=== PATIENT | male | born 1985 | race Caucasian/White ===

== ENCOUNTER 2018-08-27 12:52 | Emergency (ER) | payer OTHER ==
[2018-08-27] MEDS ORDERED: ACETAMINOPHEN EXTRA STRENGTH 500 MG TABLET ONE (13:14)
== END 2018-08-27 13:35 | disposition home or self-care (01) ==
LOC: EDH 12:52
DX: R51 Headache (principal); R11.10 Vomiting, unspecified; E78.5 Hyperlipidemia, unspecified; I10 Essential (primary) hypertension; F43.10 Post-traumatic stress disorder, unspecified; Z72.0 Tobacco use